=== PATIENT | female | born 1995 | race Caucasian/White ===

== ENCOUNTER 2018-01-06 16:00 | Emergency (ER) | payer OTHER ==
[~2018-01-06] VITALS: Ht 165.1 cm; Wt 99.8 kg
[2018-01-06 16:16] VITALS: BP 143/93; Ht 165.1 cm; Wt 99.8 kg
== END 2018-01-06 19:27 | disposition home or self-care (01) ==
LOC: ED 16:00
DX: S97.112A Crushing injury of left great toe, initial encounter (principal); W22.8XXA Striking against or struck by other objects, initial encounter; Y93.89 Activity, other specified; Y92.89 Other specified places as the place of occurrence of the external cause; Y99.8 Other external cause status

== ENCOUNTER 2019-08-09 20:11 | Emergency (ER) | payer OTHER ==
[~2019-08-09] VITALS: Ht 170.2 cm; Wt 96.6 kg
[2019-08-09 20:23] VITALS: Ht 170.2 cm; Wt 96.6 kg
[2019-08-09 21:44] VITALS: BP 128/78
== END 2019-08-09 21:44 | disposition home or self-care (01) ==
LOC: ED 20:11
DX: J32.9 Chronic sinusitis, unspecified (principal); J40 Bronchitis, not specified as acute or chronic